=== PATIENT | female | born 1955 | race Caucasian/White ===

== ENCOUNTER 2017-06-02 08:46 | Day surgery (SDC) | payer BC ==
[2017-06-01 10:45] VITALS: BMI 18.0
[2017-06-02] MEDS ORDERED: BUPIVACAINE HCL/PF (5 MG/ML) 30 ML VIAL IJ ONE (10:58)
[2017-06-02] MEDS ORDERED: DEXAMETHASONE SOD PHOSPHATE/PF 10 MG/ML SDV ONE (10:58)
[2017-06-02] MEDS ORDERED: MIDAZOLAM HCL 2 MG/2 ML SINGLE DOSE VIAL ONE (11:05)
[2017-06-02] MEDS ORDERED: PROPOFOL 20 ML ONE (11:35)
[2017-06-02] MEDS ORDERED: ceFAZolin SODIUM 1 GM VIAL ONE (11:35)
[2017-06-02] MEDS ORDERED: ONDANSETRON 4 MG/2 ML VIAL IVPUSH PRN (13:10)
[2017-06-02] MEDS ORDERED: ACETAMINOPHEN 325 MG TABLET (FP) PO PRN (13:10)
[2017-06-02] MEDS ORDERED: oxyCODONE HCL 5 MG TABLET PO PRN (13:10)
[2017-06-02] MEDS ORDERED: LACTATED RINGERS SOLUTION 1,000 ML IV SCH (13:15)
--- NOTE | 2017-06-02 13:54 | OP ---
Operative Note - Note: Operative Date: 06/02/17 Pre-Operative Diagnosis: left distal radius fracture Operation: left distal radius ORIF Implants: acumed distal radius plate Post-Operative Diagnosis: Same as Pre-op Surgeon: Jarrett Bunch Equipment Installer: Dave Sims Anesthesiologist/FLAT LOCK OPERATOR: Blane Benjamin Anesthesia: Fractional Estimated Blood Loss (mls): 20 Operative Report Dictated: Yes
--- NOTE | 2017-06-02 14:34 | OP ---
DATE OF OPERATION: 06/02/2017 PREOPERATIVE DIAGNOSIS: Left distal radius fracture. POSTOPERATIVE DIAGNOSIS: Left distal radius fracture. PROCEDURE: Left distal radius open reduction, internal fixation. SURGEON: Jarrett Rothman MD SENIOR JAVA ARCHITECT: KELECHI Albrecht, whose skillful assistance was necessary for the safe and timely performance of this procedure. Mr. Sims was able to help provide in the positioning, retraction, assistance in fracture reduction and insertion of orthopedic fixation hardware. ANESTHESIA: Regional plus sedation. . COMPLICATIONS: None. TOURNIQUET TIME: 55 minutes. INDICATIONS: This is a pleasant 61-year-old woman who suffered a trip and fall. She was found to have a distal radius fracture. She was seen in the office where treatment options, including nonoperative treatment with closed reduction and casting versus operative management with open reduction, internal fixation, were discussed. We discussed that most studies support the concept that plating leads to a faster recovery from this type of injury. We discussed that even reasonable amounts of malunion can be tolerated. I addressed the risks of surgery, including bleeding, infection, neurovascular injury, need for further surgery, postoperative pain and stiffness, nonunion, malunion, hardware failure . We discussed medical risks such as heart attack, stroke, DVT, PE or . We discussed that sometimes volar distal radius plates can cause a tendinitis requiring either removal of the plate or even potentially tendon rupture. I addressed all the patient's questions and concerns. She voiced understanding and elected for operative care. PROCEDURE: Patient was brought to the operating room after regional anesthesia was administered in the preoperative holding area. Her left upper extremity was prepped and draped in the usual sterile fashion. A preoperative dose of antibiotics was given and the usual timeout procedure was performed. The limb was now elevated and the tourniquet was inflated to 250 mmHg. An incision was planned out over the FCR. This was carried down through skin and through subcutaneous tissue. Electrocautery was used to maintain hemostasis. The FCR tendon sheath was now identified and split in line with its fibers. The FCR was mobilized ulnarly. The fascia was then incised and a retractor was placed in order to expose the pronator. The pronator was sharply elevated off the radial aspect of the distal radius and elevated more ulnarly. The fracture site, now exposed, was examined. There was mild comminution present. The fracture was now manually reduced. The narrow distal radial plate was chosen. It was affixed to bone initially using a K-wire and then after fluoroscopy confirmed proper placement utilizing a single 3.5 screw in the oblong hole. The fracture was now held in reduction while 2 K-wires were inserted distally. Again, the entire construct was examined fluoroscopically and visually. At this point, it was satisfactory. At this time, the distal fixation was gained by drilling and inserting screws into the distal row. Initially, a nonlocking screw was placed and then a combination of locking screws and peg was placed to secure the fixation. Given that the bite on the nonlocking screw was not particularly good, it was traded out for a locking device in order to ensure better fixation. At this time, the entire construct was examined, demonstrated satisfactory reduction and hardware placement. The 2 additional proximal 3.5-mm screws were drilled and inserted. These were satisfactory as well. The construct was once again examined visually and fluoroscopically and both were satisfactory. At this time, the wound was irrigated. The pronator was repaired using 2-0 Vicryl. The subcutaneous tissue was repaired using 2-0 Vicryl. The skin was closed using 4-0 nylon. The tourniquet was let down after 55 minutes. Patient was transferred to the recovery room in stable condition. I did inform the patient after the procedure that her plate is slightly prominent and if it does cause irritation we can remove it at a later date. JARRETT ROTHMAN M.D. LAURO/[id number]
[2017-06-02 15:54] VITALS: BP 124/83; PULSE 76; TEMP 97.9
== END 2017-06-02 14:30 | disposition home or self-care (01) ==
LOC: FASU 08:46
PROVIDERS: ATTEND Orthopaedic Surgery Sports Medicine
PROC: 0PSJ04Z Reposition Left Radius with Internal Fixation Device, Open Approach (ICD-10-PCS; principal; 2017-06-02 11:58)
DX: S52.532A Colles' fracture of left radius, initial encounter for closed fracture (principal); X58.XXXA Exposure to other specified factors, initial encounter; Y93.9 Activity, unspecified; Y92.9 Unspecified place or not applicable
CPT/HCPCS: 73110-TC-LT; 94760